=== PATIENT | female | born 1985 | race Caucasian/White ===

== ENCOUNTER 2018-09-09 12:38 | Emergency (ER) | payer OTHER ==
[2018-09-09 12:38] VITALS: BP 123/68
--- NOTE | 2018-09-09 13:22 | RAD ---
3 view right ankle 09/09/2018 CLINICAL INDICATION: Right ankle pain. COMPARISON: None. FINDINGS: No acute fracture or traumatic malalignment. Joint spaces maintained. Ankle mortise and talar dome are maintained. IMPRESSION: No acute osseous abnormality. Electronically signed by: Marv Menon MD (09/09/2018 1:19 PM) [facility]
--- NOTE | 2018-09-09 13:41 | PHYS DOC ---
Past History Past Medical History: No Pertinent History Past Surgical History: No Surgical History Alcohol Use: None Drug Use: None Adult General Chief Complaint Chief Complaint: ANKLE PROBLEM HPI HPI 33 yo female presents with right ankle pain. Patient states that she was walking on the stairs last night and she rolled her ankle medially. She did immediate pain and felt like there was a pop. She is placed ice on it. She has also taken ibuprofen for pain. The swelling has increased today and there is some ecchymosis. She is concern for fracture. She is unable to walk on it due to pain. She already has crutches. She denies any other injuries or complaints. She is breast-feeding. Review of Systems Review of Systems Constitutional: Denies fever or chills [] Eyes: Denies change in visual acuity, redness, or eye pain [] HENT: Denies nasal congestion or sore throat [] Respiratory: Denies cough or shortness of breath [] Cardiovascular: No additional information not addressed in HPI [] GI: Denies abdominal pain, nausea, vomiting, bloody stools or diarrhea [] : Denies dysuria or hematuria [] Musculoskeletal: Right ankle pain[] Integument: Denies rash or skin lesions [] Neurologic: Denies headache, focal weakness or sensory changes [] Endocrine: Denies polyuria or polydipsia [] All other systems were reviewed and found to be within normal limits, except as documented in this note. Allergies Allergies Allergies Coded Allergies Type Severity Reaction Last Updated Verified No Known Drug Allergies 09/09/18 No Physical Exam Physical Exam Constitutional: Well developed, well nourished, no acute distress, non-toxic appearance. [] HENT: Normocephalic, atraumatic, bilateral external ears normal, oropharynx moist, no oral exudates, nose normal. [] Eyes: PERRLA, EOMI, conjunctiva normal, no discharge. [] Neck: Normal range of motion, no tenderness, supple, no stridor. [] Cardiovascular:Heart rate regular rhythm, no murmur [] Lungs & Thorax: Bilateral breath sounds clear to auscultation [] Abdomen: Bowel sounds normal, soft, no tenderness, no masses, no pulsatile masses. [] Skin: Warm, dry, no erythema, no rash. [] Back: No tenderness, no CVA tenderness. [] Extremities: Right lateral ankle tenderness, moderate swelling, mild ecchymosis. [] Neurologic: Alert and oriented X 3, normal motor function, normal sensory function, no focal deficits noted. [] Psychologic: Affect normal, judgement normal, mood normal. [] Current Patient Data Vital Signs Vital Signs Date Time Temp Pulse Resp B/P (MAP) Pulse Ox O2 Delivery O2 Flow Rate FiO2 09/09/18 12:38 97.7 95 18 100 Room Air EKG EKG [] Radiology/Procedures Radiology/Procedures [] Impressions: 3 view right ankle 09/09/2018 CLINICAL INDICATION: Right ankle pain. COMPARISON: None. FINDINGS: No acute fracture or traumatic malalignment. Joint spaces maintained. Ankle mortise and talar dome are maintained. IMPRESSION: No acute osseous abnormality. Electronically signed by: Petey Menon MD (09/09/2018 1:19 PM) [facility] DICTATED AND SIGNED BY: PETEY MENON MD DATE: 09/09/18 1318 CC: JERRY ROYAL DO; DMITRI,STAFF ~ Course & Med Decision Making Course & Med Decision Making Pertinent Labs and Imaging studies reviewed. (See chart for details) The patient's x-rays negative for fracture. She has a sprain of at least the ATFL. I will place her in an air splint. She already has crutches. I will prescribe her on [place] 5/325. This has been shown to be safe in breast-feeding if taken as directed. She will breast-feed prior to taking the medication. She will minimize her use as much as she can. [] Dragon Disclaimer Dragon Disclaimer This electronic medical record was generated, in whole or in part, using a voice recognition dictation system. Departure Departure: Referrals: NON,STAFF (PCP) JERRY ROYAL DO Sep 09, 2018 13:41
[2018-09-09] MEDS ORDERED: HYDR-3165 PO (13:43)
== END 2018-09-09 13:50 | disposition home or self-care (01) ==
LOC: ER 12:38
DX: S93.492A Sprain of other ligament of left ankle, initial encounter (principal); X50.9XXA Other and unspecified overexertion or strenuous movements or postures, initial encounter; Y93.01 Activity, walking, marching and hiking; Y92.89 Other specified places as the place of occurrence of the external cause; Y99.8 Other external cause status
CPT/HCPCS: 29515; 73610; 99283